=== PATIENT | female | born 1980 | race Hispanic/Latino ===

== ENCOUNTER 2017-02-19 21:03 | Emergency (ER) | payer MEDICARE, OTHER ==
[~2017-02-19] VITALS: Ht 165.1 cm; Wt 100.0 kg
[2017-02-19 21:12] VITALS: BP 137/87; PULSE 89; RESP 18; O2SAT 100
--- NOTE | 2017-02-19 22:04 | ED.REPORT ---
HPI-Extremity Problem Lower Date of Service Feb 19, 2017 ED Provider: Mj Mcdowell DO 36 y/o female with no pertinent hx presents to the ED complaining of left foot pain and swelling around the ankle, onset yesterday. She states a floor jerry fell on her foot in the garage. She reports limping due to the pain. Nursing Notes Stated Complaint: FOOT PAIN Chief Complaint: Extremity Trauma Nursing Notes Reviewed: Yes Allergies: Coded Allergies: acetaminophen (Verified Allergy, Intermediate, 02/19/17) hydrocodone (Verified Allergy, Intermediate, 02/19/17) General Time Seen by MD: 22:00 Chief Complaint Foot injury left Hx Obtained From: Patient Arrived By: Walk-in Onset Occurred: Yesterday Symptom Duration: Since onset Caused by: Blunt injury Location: : Foot left Quality: Painful Severity: Current: Mild Severity: Maximum: Moderate Immunizations: All up to date Recent Healthcare: No recent doctor visit Similar Sx Previous: No Past Medical History Past Medical History none reported Past Surgical History none reported Smoking History Unknown if Ever Smoker Ambulatory Status Independent Review of Systems Musculoskeletal: Reports: Extremity pain (left foot), Extremity swelling (left foot) Complete sys rev & neg: except as marked. Physical Exam Initial Vital Signs Vital Signs (First) Date Time Temp Pulse Resp B/P Pulse Ox O2 Delivery O2 Flow Rate FiO2 02/19/17 21:12 36.6 89 18 137/87 100 Room Air Initial VS: Reviewed, Vital signs normal Head / Eyes: Atraumatic, Normocephalic Neck: Supple, Non-tender, Full range of motion Respiratory: Breath sounds normal, No respiratory distress Cardiovascular: Regular rate & rhythm, Heart sounds normal, Intact distal pulses Abdomen / GI: Soft, Non-tender Upper Extremities: Vascular intact, Neuro intact, No swelling, No tenderness Skin: Warm, Dry, No cyanosis Neurologic: Alert, Oriented, Nonfocal Lower Extremity / Pelvis / MS: Atraumatic, Full range of motion, No swelling, No deformity, Neurologic intact, Vascular intact Ankle / Foot: Atraumatic, No deformity, Neurologic intact, Vascular intact Left Ankle: Positive: Swelling present... (lateral mallelous), Tenderness present... (lateral malleolus) General/Constitutional: Awake, Alert, No acute distress, Cooperative Interpretation & Diagnostics X-Ray Interpretation Xray Interpretation: No fracture. X-Ray Ordered: Foot left Interpretation / Wet Read by: Nancy read ED physician Re-Eval/Medical Decision Re-Evaluation/Progress : Time of Eval: 23:00 Patient Status: Condition improved Re-Evaluation/Progress Note: Rechecked pt. Discussed imaging results and diagnosis. Informed the pt of the plan to discharge. Pt understands and agrees with plan. F/U instructions and RTER warning given. All questions addressed. Counseled Regarding: Diagnosis, Need for follow-up, When/why to return to ED Discharge & Departure Impression: Primary Impression: Ankle contusion Disposition: Home Discharge Condition All VS Reviewed: Yes Condition: Stable Patient Instructions: Crutch Instructions (ED) Additional Instructions: No obvious fractures are identified. Apply ice, rest, keep it elevated. Use ibuprofen and the air stirrup and crutches if needed. Follow-up with your primary care doctor for repeat evaluation in about 1 week. Referrals: [facility] (PCP) Scribe Attestation Portions of this note were transcribed by Vanessa Jimenez. I, , personally performed the history, physical exam and medical decision-making;I reviewed and confirmed the accuracy of the information in the transcribed note. Signed by Clair Blakely. 02/19/17 23:23 copies to: [facility] Timothy S DO Feb 19, 2017 22:04 Vanessa Jimenez Feb 19, 2017 22:21
[2017-02-20 00:14] VITALS: BP 134/82; PULSE 88; RESP 18; O2SAT 100
--- NOTE | 2017-02-20 08:03 | DRSVH ---
PROCEDURE: X-RAY LEFT FOOT COMPLETE, MINIMUM THREE VIEWS ([id number]) INDICATIONS: injury TECHNIQUE: 3 views of the foot were acquired. COMPARISON: [facility], CR, XR ANKLE 3VW LT, 02/19/2017, 22:42. FINDINGS: Bones: No fractures or dislocations. No suspicious bony lesions. Soft tissues: No tibiotalar joint effusion. Achilles tendon appears normal. IMPRESSION: No fracture or dislocation. No significant discrepancy with ER preliminary report. Dictated by: Chevy Vu M.D. on 02/20/2017 at 8:00 Approved by: Chevy Vu M.D. on 02/20/2017 at 8:01
--- NOTE | 2017-02-20 08:06 | DRSVH ---
PROCEDURE: X-RAY LEFT ANKLE, MINIMUM THREE VIEWS ([id number]) INDICATIONS: focal lat malleolar ttp TECHNIQUE: 3 views of the ankle were acquired. COMPARISON: None. FINDINGS: Bones: There is a corticated also distal to the medial malleolus, likely sequelae of old injury. The re is mild widening of the lateral aspect of ankle mortise. No acute fractures or dislocations. No s uspicious bony lesions. Soft tissues: No tibiotalar joint effusion. Achilles tendon appears normal. IMPRESSION: 1. No fracture or dislocation. 2. Mild widening in the lateral aspect of the ankle mortise. If clinical symptoms persist or clinica l suspicion for pathology is high, advanced imaging such as CT or MRI is suggested for further evalua tion. Dictated by: Chevy Vu M.D. on 02/20/2017 at 8:02 Approved by: Chevy Vu M.D. on 02/20/2017 at 8:04
== END 2017-02-19 23:50 | disposition home or self-care (01) ==
LOC: SED 21:03
DX: S90.00XA Contusion of unspecified ankle, initial encounter (principal); W22.8XXA Striking against or struck by other objects, initial encounter; Y93.9 Activity, unspecified; Y92.59 Other trade areas as the place of occurrence of the external cause; Y99.8 Other external cause status; Z88.6 Allergy status to analgesic agent; Z88.5 Allergy status to narcotic agent